=== PATIENT | female | born 1945 ===

== ENCOUNTER 2018-03-29 13:27 | Day surgery (SDC) | payer MEDICARE, OTHER ==
[~2018-03-29] VITALS: Ht 152.4 cm; Wt 67.6 kg
[~2018-03-29 13:27] MED LIST: ASPI81CH PO; ATENOLOL; FENOFIBRATE50 MG PO; FLUT44OIA INH; GABA300 PO; GLIP5 PO; INSDET100 SC; LISI5 PO; Norco 5-325 Ta1 EACH PO; PRAV20 PO; PRED10 PO; Pepcid40 MG PO; TRADJENTA5 MG PO; TRIA80TC TOP; Zofran8 MG PO
== END 2018-03-29 15:39 | disposition home or self-care (01) ==
LOC: ORSCSDS 13:27
PROVIDERS: Student in an Organized Health Care Education/Training Program
PROC: 0DBN8ZX Excision of Sigmoid Colon, Via Natural or Artificial Opening Endoscopic, Diagnostic (ICD-10-PCS; principal; 2018-03-29 15:00)
PROC: 0DBH8ZX Excision of Cecum, Via Natural or Artificial Opening Endoscopic, Diagnostic (ICD-10-PCS; principal; 2018-03-29 15:00)
PROC: 0DBK8ZX Excision of Ascending Colon, Via Natural or Artificial Opening Endoscopic, Diagnostic (ICD-10-PCS; principal; 2018-03-29 15:00)
DX: Z12.11 Encounter for screening for malignant neoplasm of colon (principal); K63.5 Polyp of colon; D37.4 Neoplasm of uncertain behavior of colon; K57.30 Diverticulosis of large intestine without perforation or abscess without bleeding; Z86.010 Personal history of colon polyps; E11.9 Type 2 diabetes mellitus without complications; I10 Essential (primary) hypertension; J45.909 Unspecified asthma, uncomplicated; Z79.82 Long term (current) use of aspirin; Z79.4 Long term (current) use of insulin; Z79.899 Other long term (current) drug therapy
CPT/HCPCS: 82947; 88305; J7120

== ENCOUNTER 2019-07-08 10:58 | Emergency (ER) | payer OTHER ==
[~2019-07-08] VITALS: Ht 152.4 cm; Wt 63.5 kg
[2019-07-08] MEDS ORDERED: CYCL10 PO (13:33)
== END 2019-07-08 13:51 | disposition home or self-care (01) ==
LOC: ER 10:58
DX: S16.1XXA Strain of muscle, fascia and tendon at neck level, initial encounter (principal); S40.011A Contusion of right shoulder, initial encounter; R91.1 Solitary pulmonary nodule; I10 Essential (primary) hypertension; E11.42 Type 2 diabetes mellitus with diabetic polyneuropathy; Z88.5 Allergy status to narcotic agent; Z88.8 Allergy status to other drugs, medicaments and biological substances; Z79.4 Long term (current) use of insulin; V89.2XXA Person injured in unspecified motor-vehicle accident, traffic, initial encounter
CPT/HCPCS: 72125; 73030; 99284-25

== ENCOUNTER 2020-09-08 07:57 | Day surgery (SDC) | payer OTHER ==
[~2020-09-08] VITALS: Ht 152.4 cm; Wt 66.8 kg
[~2020-09-08 07:57] MED LIST changes: +CYCL10 PO
[2020-09-08] MEDS ORDERED: BASAGLAR K100 UNIT/1 SC (08:30)
[2020-09-08] MEDS ORDERED: VICTOZA 2-0.6 MG/0.1 SC (08:33)
--- NOTE | 2020-09-08 08:51 | NUR ---
09/08/20 0851 Jerrod Munoz History, Chart, Medications and Allergies reviewed before start of procedure.MONITOR INTACT WITH CONTINUOUS PULSE OXIMETRY AND INTERMITTENT BP.3-LEAD EKG REVIEWED WITH PHYSICIAN PRIOR TO START OF PROCEDURE.O2 VIA N/C INTACT THROUGHOUT SEDATION/PROCEDURE. PATIENT DETERMINED TO BE ASA APPROPRIATE FOR PROPOFOL SEDATION PRIOR TO START OF PROCEDURE BY DR. MCDONALD.
--- NOTE | 2020-09-08 09:55 | NUR ---
DISCHARGE SUMMARY PT A&O4, LEFT FLOOR VIA WC WITH RN, TO GO HOME WITH DAUGHTER/ASSOCIATE DIRECTOR OF DEVELOPMENT, WITH ALL PERSONAL POSSESSIONS. Patient up to Ambulate independently. Gait steady. Discharge instructions reviewed with patient. Patient verbalizes understanding. Copy given to patient to take home. IV DC'D.
== END 2020-09-08 09:50 | disposition home or self-care (01) ==
LOC: ORSCMMR 07:57 → ORD 09:30 → ORSCMMR 09:30
PROVIDERS: Internal Medicine Gastroenterology
PROC: 0DBN8ZX Excision of Sigmoid Colon, Via Natural or Artificial Opening Endoscopic, Diagnostic (ICD-10-PCS; principal; 2020-09-08 09:30)
DX: Z12.11 Encounter for screening for malignant neoplasm of colon (principal); Z86.010 Personal history of colon polyps; Z83.71 Family history of colonic polyps; K63.5 Polyp of colon; E11.9 Type 2 diabetes mellitus without complications; K21.9 Gastro-esophageal reflux disease without esophagitis; E78.00 Pure hypercholesterolemia, unspecified; I10 Essential (primary) hypertension; F32.9 Major depressive disorder, single episode, unspecified; Z79.82 Long term (current) use of aspirin; Z79.4 Long term (current) use of insulin; Z79.899 Other long term (current) drug therapy
CPT/HCPCS: 82947; 88305; J2704; J7120

== ENCOUNTER 2021-04-24 23:38 | Emergency (ER) | payer OTHER ==
[~2021-04-24] VITALS: Ht 152.4 cm; Wt 61.2 kg
[~2021-04-24 23:38] MED LIST changes: +BASAGLAR K100 UNIT/1 SC; +VICTOZA 2-0.6 MG/0.1 SC
[2021-04-25] MEDS ORDERED: IBUP400 PO (00:26)
[2021-04-25] MEDS ORDERED: TRAM50 PO (00:27)
== END 2021-04-25 00:40 | disposition home or self-care (01) ==
LOC: ER 23:38
DX: R07.81 Pleurodynia (principal); I10 Essential (primary) hypertension; Z88.8 Allergy status to other drugs, medicaments and biological substances; Z79.899 Other long term (current) drug therapy; W19.XXXA Unspecified fall, initial encounter
CPT/HCPCS: 71100; 99283-25; A9270

== ENCOUNTER 2022-09-20 12:03 | Day surgery (SDC) | payer OTHER ==
[~2022-09-20] VITALS: Ht 152.4 cm; Wt 62.3 kg
[~2022-09-20 12:03] MED LIST changes: +FAMO20; +IBUP400 PO; +ROSUVASTATIN CA20 MG PO; +Robaxin750 MG PO; +TRAM50 PO; +TRULICITY0.75 MG/01 SQ
--- NOTE | 2022-09-20 12:30 | NUR ---
09/20/22 1230 Tayler Zelaya 1225 TETRACAINE TO RIGHT EYE 1226 PLEDGET TO RIGHT EYE BY [facility].MISSAEL
--- NOTE | 2022-09-20 14:04 | NUR ---
09/20/22 1404 LEONID MULLER PT HAS A HX OF ASTHMA. SOME EXPIRATORY WHEEZING NOTED AT FIRST IN LLL. HOWEVER, AFTER ENCOURAGED COUGHING, LUNGS WERE CLEAR.
== END 2022-09-20 14:12 | disposition home or self-care (01) ==
LOC: ORSCSDS 12:03
PROVIDERS: Ophthalmology
PROC: 08RJ3JZ Replacement of Right Lens with Synthetic Substitute, Percutaneous Approach (ICD-10-PCS; principal; 2022-09-20 13:30)
DX: E11.36 Type 2 diabetes mellitus with diabetic cataract (principal); H25.11 Age-related nuclear cataract, right eye; I10 Essential (primary) hypertension; J44.9 Chronic obstructive pulmonary disease, unspecified; E11.9 Type 2 diabetes mellitus without complications; Z79.899 Other long term (current) drug therapy; Z79.82 Long term (current) use of aspirin; Z79.4 Long term (current) use of insulin
CPT/HCPCS: 82947; J2001; J2250; J3010; J3301; J7040; V2632

== ENCOUNTER → 2022-12-29 | Outpatient (CLI) | payer OTHER | END | disposition home or self-care (01) | LOC: LAB SHORT 08:26 → PLD 08:26 | DX: B07.0 Plantar wart (principal) | CPT/HCPCS: 88305 ==

== ENCOUNTER → 2023-01-27 | Outpatient (CLI) | payer OTHER ==
[2023-01-27 16:26] LABS: BASOPHILS PERCENT AUTO 1 % (0-2); EOSINOPHILS ABSOLUTE AUTO 0.19 K/mm3 (0.00-0.68); EOSINOPHILS PERCENT AUTO 2 % (0-6); Hematocrit 42.1 % (33.0-51.0); Hemoglobin 14.4 g/dL (11.5-16.0); IMMATURE GRAN ABSOLUTE AUTO 0.05 K/mm3 (0.00-0.10); IMMATURE GRAN PERCENT AUTO 1 % (0-1); LYMPHOCYTES ABSOLUTE AUTO 3.45 K/mm3 (0.84-5.20); LYMPHOCYTES PERCENT AUTO 36 % (21-46); MONOCYTES ABSOLUTE AUTO 0.77 K/mm3 (0.16-1.47); MONOCYTES PERCENT AUTO 8 % (4-13); Mean Corpuscular HGB 30.4 pg (26.0-34.0); Mean Corpuscular HGB Conc 34.2 g/dL (31.5-36.5); Mean Corpuscular Volume 89 fL (80-100); Mean Platelet Volume 10.1 fL (9.1-12.4); NEUTROPHILS ABSOLUTE AUTO 5.14 K/mm3 (1.96-9.15); NEUTROPHILS PERCENT AUTO 53 % (41-73); Platelet Count 273 K/mm3 (150-400); RDW Coefficient Variation 12.9 % (11.7-14.2); RDW Standard Deviation 41.6 fL (35.1-46.3); Red Blood Cell Count 4.73 M/mm3 (3.80-5.20)
[2023-01-27 16:31] LABS: Alanine Aminotransfer (ALT/SGP 31 U/L (12-78); Albumin, Blood 3.8 g/dL (3.4-5.0); Albumin/Globulin Ratio 1.1 (0.8-1.8); Alk Phos 48 U/L (50-136); Anion Gap 8 mmol/L (6-16); Aspartate Aminotrans (AST/SGOT 20 U/L (12-37); Bilirubin, Total 0.5 mg/dL (0.1-1.0); Blood Urea Nitrogen 29 mg/dL (8-24); Bun/Creatinine Ratio 33.4 (12.0-20.0); CHOL/HDL RATIO 2.7; CO2, Blood 26 mmol/L (21-32); Calcium, Blood 10.1 mg/dL (8.5-10.1); Chloride, Blood 105 mmol/L (98-108); Cholesterol 91 mg/dL (50-200); Creatinine, Blood 0.87 mg/dL (0.40-1.00); Globulin, Blood 3.5 g/dL (2.2-4.0); Glomerular Filtration Rate 69 (60-); Glucose, Blood 334 mg/dL (70-99); HDL Cholesterol 34 mg/dL (>39); LDL/HDL RATIO 0.1; Low Density Lipoprotein Chol 3 mg/dL (0-110); Potassium, Blood 3.7 mmol/L (3.5-5.5); Sodium, Blood 139 mmol/L (136-145); Total Protein, Blood 7.3 g/dL (6.4-8.2); Triglycerides 269 mg/dL (30-160); Very Low Density Lipoprot Chol 53 mg/dL (6-32)
== END | disposition home or self-care (01) ==
LOC: LAB SHORT 15:16 → LAB 15:16
PROVIDERS: Student in an Organized Health Care Education/Training Program
DX: I10 Essential (primary) hypertension (principal); E11.9 Type 2 diabetes mellitus without complications; E04.1 Nontoxic single thyroid nodule; E78.1 Pure hyperglyceridemia; Z79.4 Long term (current) use of insulin; Z79.84 Long term (current) use of oral hypoglycemic drugs
CPT/HCPCS: 80053; 80061; 84443; 85025

== ENCOUNTER → 2023-02-20 | Outpatient (CLI) | payer OTHER | END | disposition home or self-care (01) | LOC: LAB SHORT 15:15 → LAB 15:15 | DX: E11.9 Type 2 diabetes mellitus without complications (principal); Z79.4 Long term (current) use of insulin; Z79.84 Long term (current) use of oral hypoglycemic drugs | CPT/HCPCS: 82043 ==

== ENCOUNTER 2024-07-05 22:58 | Emergency (ER) | payer OTHER ==
[~2024-07-05] VITALS: Ht 152.4 cm; Wt 54.4 kg
[~2024-07-05 22:58] MED LIST changes: +ALBU90OI; +Atarax10 MG PO; +INSULANPEN SC; +Lisinopril-Hct1 EAC4 PO; +METF500C PO; +TRULICITY3 MG/0.5 M SC
[2024-07-06] MEDS ORDERED: Ketorolac Tromethamine 15mg Vial IV ONE (00:50)
[2024-07-06] MEDS ORDERED: Methocarbamol 500 MG Tab PO ONE (00:55)
[2024-07-06] MEDS ORDERED: Acetaminophen 500 MG Tab PO ONE (00:55)
[2024-07-06 01:20] LABS: BASOPHILS PERCENT AUTO 1 % (0-2); EOSINOPHILS ABSOLUTE AUTO 0.28 K/mm3 (0.00-0.68); EOSINOPHILS PERCENT AUTO 3 % (0-6); Hemoglobin 13.5 g/dL (11.5-16.0); IMMATURE GRAN ABSOLUTE AUTO 0.05 K/mm3 (0.00-0.10); IMMATURE GRAN PERCENT AUTO 1 % (0-1); LYMPHOCYTES ABSOLUTE AUTO 4.05 K/mm3 (0.84-5.20); LYMPHOCYTES PERCENT AUTO 40 % (21-46); MONOCYTES ABSOLUTE AUTO 0.71 K/mm3 (0.16-1.47); MONOCYTES PERCENT AUTO 7 % (4-13); Mean Corpuscular HGB 29.9 pg (26.0-34.0); Mean Corpuscular HGB Conc 33.8 g/dL (31.5-36.5); Mean Corpuscular Volume 89 fL (80-100); Mean Platelet Volume 9.4 fL (9.1-12.4); NEUTROPHILS ABSOLUTE AUTO 4.84 K/mm3 (1.96-9.15); NEUTROPHILS PERCENT AUTO 48 % (41-73); Platelet Count 263 K/mm3 (150-400); RDW Coefficient Variation 13.1 % (11.7-14.2); RDW Standard Deviation 42.4 fL (35.1-46.3); Red Blood Cell Count 4.52 M/mm3 (3.80-5.20); White Blood Cell Count 10.03 K/mm3 (4.00-11.30)
[2024-07-06 01:40] LABS: Albumin, Blood 3.6 g/dL (3.4-5.0); Albumin/Globulin Ratio 1.1 (0.8-1.8); Bilirubin, Total 0.3 mg/dL (0.1-1.0); Bun/Creatinine Ratio 21.2 (12.0-20.0); Calcium, Blood 9.8 mg/dL (8.5-10.1); Creatinine, Blood 0.85 mg/dL (0.40-1.00); Globulin, Blood 3.4 g/dL (2.2-4.0); Potassium, Blood 3.8 mmol/L (3.5-5.5)
[2024-07-06 03:02] LABS: Source, Urine Clean Catch
[2024-07-06 03:05] LABS: Bilirubin, Urine Neg (Neg); Blood, Urine Neg (Neg); Glucose Qualitative, Urine Neg (Neg); Ketones, Urine Neg (Neg); Leukocyte Esterase, Urine 1+ (Neg); Nitrite, Urine Neg (Neg); Protein, Urine Neg (Neg); Specific Gravity, Urine 1.015 (1.003-1.022); Urobilinogen, Urine NORM (Normal)
[2024-07-06 03:12] LABS: Appearance, Urine Clear (Clear); Color, Urine Yellow (P-Yellow)
[2024-07-06 03:13] LABS: Amorphous Light (0-Heavy); Bacteria Few /hpf; Red Blood Cells, Urine 0-2 /hpf (0-2); Squamous Epithelial Cells Few /hpf (Few); White Blood Cells, Urine 0-2 /hpf (0-5)
[2024-07-06 04:02] VITALS: BP 138/77
== END 2024-07-06 04:02 | disposition home or self-care (01) ==
LOC: ER 22:58
PROVIDERS: Emergency Medicine
DX: R10.32 Left lower quadrant pain (principal); E11.42 Type 2 diabetes mellitus with diabetic polyneuropathy; E78.00 Pure hypercholesterolemia, unspecified; I10 Essential (primary) hypertension; Z79.84 Long term (current) use of oral hypoglycemic drugs; Z79.899 Other long term (current) drug therapy; Z79.82 Long term (current) use of aspirin; Z88.5 Allergy status to narcotic agent
CPT/HCPCS: 74177; 80053; 81001; 85025; 96374; 99284; A9270; J1885; Q9967

== ENCOUNTER 2024-12-23 10:57 | Day surgery (SDC) | payer OTHER ==
[2024-12-23] MEDS ORDERED: Lidocaine HCl 4% Cream 5 GM ONE (14:10)
== END 2024-12-23 23:00 | disposition home or self-care (01) ==
LOC: WOUND 10:57
DX: E11.622 Type 2 diabetes mellitus with other skin ulcer (principal); E11.621 Type 2 diabetes mellitus with foot ulcer; L97.322 Non-pressure chronic ulcer of left ankle with fat layer exposed; E11.40 Type 2 diabetes mellitus with diabetic neuropathy, unspecified; E11.51 Type 2 diabetes mellitus with diabetic peripheral angiopathy without gangrene; I10 Essential (primary) hypertension; Z79.4 Long term (current) use of insulin
CPT/HCPCS: 73630; A6213; A9270; G0463

== ENCOUNTER 2024-12-31 04:46 | Day surgery (SDC) | payer OTHER ==
[2024-12-31] MEDS ORDERED: Lidocaine HCl 4% Cream 5 GM ONE (15:08)
== END 2024-12-31 22:00 | disposition home or self-care (01) ==
LOC: WOUND 04:46
DX: E11.622 Type 2 diabetes mellitus with other skin ulcer (principal); L97.322 Non-pressure chronic ulcer of left ankle with fat layer exposed; E11.40 Type 2 diabetes mellitus with diabetic neuropathy, unspecified; E11.51 Type 2 diabetes mellitus with diabetic peripheral angiopathy without gangrene
CPT/HCPCS: A6213; A9270

== ENCOUNTER 2025-01-07 00:54 | Day surgery (SDC) | payer OTHER ==
[2025-01-07] MEDS ORDERED: Lidocaine HCl 4% Cream 5 GM ONE (13:39)
== END 2025-01-07 23:00 | disposition home or self-care (01) ==
LOC: WOUND 00:54
DX: E11.622 Type 2 diabetes mellitus with other skin ulcer (principal); L97.322 Non-pressure chronic ulcer of left ankle with fat layer exposed; E11.40 Type 2 diabetes mellitus with diabetic neuropathy, unspecified; E11.51 Type 2 diabetes mellitus with diabetic peripheral angiopathy without gangrene
CPT/HCPCS: A6213; A9270

== ENCOUNTER 2025-01-14 00:57 | Day surgery (SDC) | payer OTHER ==
[2025-01-14] MEDS ORDERED: Lidocaine HCl 4% Cream 5 GM ONE (14:14)
== END 2025-01-14 23:25 | disposition home or self-care (01) ==
LOC: WOUND 00:57
DX: E11.622 Type 2 diabetes mellitus with other skin ulcer (principal); L97.322 Non-pressure chronic ulcer of left ankle with fat layer exposed; E11.40 Type 2 diabetes mellitus with diabetic neuropathy, unspecified; E11.51 Type 2 diabetes mellitus with diabetic peripheral angiopathy without gangrene; I10 Essential (primary) hypertension
CPT/HCPCS: A6213; A9270

== ENCOUNTER 2025-01-21 00:59 | Day surgery (SDC) | payer OTHER ==
[2025-01-21] MEDS ORDERED: Lidocaine HCl 4% Cream 5 GM ONE (13:56)
== END 2025-01-21 23:00 | disposition home or self-care (01) ==
LOC: WOUND 00:59
DX: E11.622 Type 2 diabetes mellitus with other skin ulcer (principal); L97.322 Non-pressure chronic ulcer of left ankle with fat layer exposed; E11.40 Type 2 diabetes mellitus with diabetic neuropathy, unspecified; E11.51 Type 2 diabetes mellitus with diabetic peripheral angiopathy without gangrene
CPT/HCPCS: A6196; A6213; A9270; G0463

== ENCOUNTER → 2025-06-24 | Outpatient (CLI) | payer OTHER ==
[2025-06-24 18:07] LABS: Hematocrit 44.3 % (33.0-51.0); Hemoglobin 15.0 g/dL (11.5-16.0); Mean Corpuscular HGB Conc 33.9 g/dL (31.5-36.5); Mean Corpuscular Volume 91 fL (80-100); NRBC ABSOLUTE 0.00 K/mm3 (0.00-0.02); NRBC Auto 0.0 /100 WBC (0.0-0.2); Platelet Count 291 K/mm3 (150-400); RDW Coefficient Variation 13.3 % (11.7-14.2); RDW Standard Deviation 43.8 fL (35.1-46.3)
[2025-06-24 19:28] LABS: Alanine Aminotransfer (ALT/SGP 27 U/L (12-78); Albumin, Blood 3.9 g/dL (3.4-5.0); Albumin/Globulin Ratio 1.2 (0.8-1.8); Anion Gap 11 mmol/L (3-11); Aspartate Aminotrans (AST/SGOT 18 U/L (12-37); Bilirubin, Total 0.6 mg/dL (0.1-1.0); Blood Urea Nitrogen 18 mg/dL (8-24); CHOL/HDL RATIO 2.0; CO2, Blood 25 mmol/L (21-32); Calcium, Blood 9.6 mg/dL (8.5-10.1); Chloride, Blood 106 mmol/L (98-108); Cholesterol 88 mg/dL (50-200); Creatinine, Blood 0.91 mg/dL (0.40-1.00); Globulin, Blood 3.2 g/dL (2.2-4.0); Glucose, Blood 143 mg/dL (70-99); HDL Cholesterol 45 mg/dL (>39); LDL/HDL RATIO 0.2; Low Density Lipoprotein Chol 7 mg/dL (0-110); Potassium, Blood 3.4 mmol/L (3.5-5.5); Sodium, Blood 139 mmol/L (136-145); Total Protein, Blood 7.1 g/dL (6.4-8.2); Triglycerides 181 mg/dL (30-160); Very Low Density Lipoprot Chol 36 mg/dL (6-32)
[2025-06-24 20:45] LABS: Creatinine, Urine Random 150.0 mg/dL (27.00-270.00); Microalbumin, Random Urine 37.1 mg/L (0.000-20.000)
== END | disposition home or self-care (01) ==
LOC: LAB SHORT 12:00 → LAB 12:00
DX: E11.9 Type 2 diabetes mellitus without complications (principal); Z79.4 Long term (current) use of insulin; Z79.84 Long term (current) use of oral hypoglycemic drugs
CPT/HCPCS: 80053; 80061; 82043; 82570; 85027